=== PATIENT | female | born 1980 | race Caucasian/White ===

== ENCOUNTER 2017-10-29 20:42 | Inpatient (IN) | payer SELFPAY ==
[2017-10-29] MEDS ORDERED: NS 0.9% 1000 ML*IV.FLUID IV ONE (20:52)
[2017-10-29] MEDS ORDERED: cefTRIAXone(*) 1 GM in NS 0.9% 50 ML* 50 ML IVPB ONE (21:04)
[2017-10-29] MEDS ORDERED: NS 0.9% 1000 ML* 2,000 ML IV ONE (21:05)
[2017-10-29] MEDS ORDERED: Acetaminophen TAB* 325 MG PO ONE (21:06)
[2017-10-29 21:16] LABS: ABS Basophils 0.1 10^3/ul (0-0.2); ABS Eosinophils 0 10^3/ul (0-0.6); ABS Monocytes 1.1 10^3/ul (0-0.8); ABS Neutrophils 13.1 10^3/ul (1.5-7.7); ABS Nucleated RBC 0 10^3/ul; Eosinophil % 0.1 % (0-6); Hematocrit 38 % (35-47); Hemoglobin 13.3 g/dl (12.0-16.0); Lymphocyte % 6.5 % (25-47); Mean Corpuscular HGB Conc 35 g/dl (31-36); Mean Corpuscular Hemoglobin 31 pg (27-31); Mean Corpuscular Volume 88 fL (80-97); Mean Platelet Volume 7.4 um3 (7.4-10.4); Nucleated Red Blood Cells % 0; Platelet Count 184 10^3/ul (150-450); Red Blood Count 4.31 10^6/ul (4.00-5.40); Red Cell Distribution Width 13 % (10.5-15); White Blood Count 15.2 10^3/ul (3.5-10.8)
[2017-10-29 21:24] LABS: INR 1.19 (0.77-1.02)
[2017-10-29 21:33] LABS: EGFR Non-African American 57.4 (>60)
--- NOTE | 2017-10-29 21:47 | RAD ---
INDICATION: Chest pain COMPARISON: Chest x-ray January 01, 2013 TECHNIQUE: Single AP portable view of the chest was obtained. FINDINGS: Image quality is compromised due to the relative inferiority of a portable chest x-ray. The heart and mediastinum exhibit normal size and contour. The lungs are grossly clear. There is no evidence of a large pleural effusion. Visualized bones are normal for the patient's age. IMPRESSION: No radiographic evidence for acute cardiopulmonary abnormality on this portable chest x-ray.
[2017-10-29 22:20] LABS: Urine Appearance Cloudy; Urine Blood 2+ (Negative); Urine Color Yellow; Urine Ketones Trace (Negative); Urine Protein 2+(100 mg/dL) (Negative); Urine Specific Gravity 1.009 (1.010-1.030); Urine Urobilinogen Negative (Negative)
[2017-10-29] MEDS ORDERED: NS 0.9% 1000 ML* 1,000 ML IV ONE (23:53)
[2017-10-30] MEDS ORDERED: LORazepam TAB(*) 0.5 MG PO PRN (01:31)
[2017-10-30] MEDS ORDERED: tiZANidine TAB* 2 MG PO PRN (01:31)
[2017-10-30] MEDS: NS 0.9% w/ 20 Meq KCL 1000 ML* 1,000 ML IV SCH ×4 (02:29→18:40)
[2017-10-30] MEDS ORDERED: Acetaminophen TAB* 325 MG ONE (02:34)
[2017-10-30] MEDS: Acetaminophen TAB* 325 MG PO PRN ×2 (02:38→13:35)
[2017-10-30] MEDS: SUMAtriptan TAB* 25 MG PO PRN ×4 (03:14→18:10)
[2017-10-30] MEDS: Ibuprofen TAB* 400 MG PO PRN ×3 (03:45→18:10)
[2017-10-30 07:11] LABS: ABS Basophils 0 10^3/ul (0-0.2); ABS Eosinophils 0 10^3/ul (0-0.6); ABS Lymphocytes 0.9 10^3/ul (1.0-4.8); ABS Monocytes 0.7 10^3/ul (0-0.8); ABS Neutrophils 12.5 10^3/ul (1.5-7.7); ABS Nucleated RBC 0 10^3/ul; Eosinophil % 0 % (0-6); Hematocrit 33 % (35-47); Hemoglobin 11.4 g/dl (12.0-16.0); Lymphocyte % 6.2 % (25-47); Mean Corpuscular HGB Conc 35 g/dl (31-36); Mean Corpuscular Hemoglobin 31 pg (27-31); Mean Corpuscular Volume 88 fL (80-97); Mean Platelet Volume 7.8 um3 (7.4-10.4); Nucleated Red Blood Cells % 0; Platelet Count 141 10^3/ul (150-450); Red Blood Count 3.74 10^6/ul (4.00-5.40); Red Cell Distribution Width 13 % (10.5-15); White Blood Count 14.1 10^3/ul (3.5-10.8)
[2017-10-30 07:22] LABS: EGFR Non-African American 86.1 (>60)
[2017-10-30] MEDS: buPROPion SR TAB.SR* 200 MG PO SCH ×2 (08:10→20:59)
[2017-10-30] MEDS: Pregabalin CAP(*) 50 MG PO SCH ×2 (08:10→21:00)
[2017-10-30] MEDS: Topiramate TAB(*) 100 MG PO SCH ×2 (08:10→20:59)
[2017-10-30] MEDS ORDERED: Meloxicam(NF) 15 MG TAB PO SCH (09:00)
[2017-10-30] MEDS: KCL 10 MEQ/50 ML IVPREMIX* 10 MEQ/50 ML BAG IV SCH ×2 (09:04→11:31)
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
[2017-10-30] MEDS ORDERED: Potassium Chlor TAB* 20 MEQ TAB.ER PO ONE (10:03)
--- NOTE | 2017-10-30 11:22 | RAD ---
INDICATION: Right flank pain COMPARISON: CT abdomen pelvis November 06, 2014 TECHNIQUE: Longitudinal and transverse scans of the kidneys were obtained. FINDINGS: Kidneys: The kidneys are normal in size and echogenicity. There are no sonographically identifiable renal calculi. There is mild pelvocaliectasis on the right with trace right-sided perinephric fluid. The right kidney measures 13.6 x 7.0 x 5.5 cm and the left kidney 12.3 x 6.0 x 5.1 cm. Other: Bilateral ureteral jets are document IMPRESSION: MILD RIGHT-SIDED PYELOCALIECTASIS AND TRACE RIGHT-SIDED PERINEPHRIC FLUID. NO SONOGRAPHICALLY IDENTIFIABLE RENAL CALCULI. BILATERAL URETERAL JETS ARE DOCUMENT.
[2017-10-30] MEDS ORDERED: Potassium Chlor TAB* 10 MEQ TAB.ER PO ONE (13:20)
--- NOTE | 2017-10-30 15:09 | PN ---
Subjective Date of Service: 10/30/17 Interval History: Pt seen and examined. Meds and labs reviewed. ROS: Complains of right flank pain. Denied SANDOVAL/dizziness, F/C, N/V, CP, SOB, increased cough, sputum production, diarrhea, constipation, dysuria, myalgias, arthralgias, throat pain, and new skin lesions. The rest of the 14 point ROS are unremarkable. Mentioned she had passed "stones" a month or two ago and had a follow up imaging which did not reveal any significant obstruction. PHYSICAL EXAM: GEN APPEARANCE: Awake, not in acute distress HEENT: NC/AT, PERRLA, moist oral mucosa, (-) throat erythema NECK: Soft, supple, (-) cervical LAD, (-)JVD HEART: S1S2 WNL, RRR, No MRG CHEST: CTA, BL, GAE, No W/R/R ABD: Soft, ND/NT, NABS 4x Q, No CVA tenderness EXT: No C/C/E SKIN: Warm to touch PSYCH: No active psychosis, hallucinations, depression, SI/HI Objective Active Medications: Acetaminophen (Tylenol Tab*) 650 mg PO Q6H PRN PRN Reason: FEVER/PAIN Last Admin: 10/30/17 13:35 Dose: 650 mg Bupropion HCl (Wellbutrin Sr Tab*) 200 mg PO BID [facility] Last Admin: 10/30/17 08:10 Dose: 200 mg Potassium Chloride/Sodium Chloride (Ns 0.9% W/ 20 Meq Kcl 1000 Ml*) 1,000 mls @ 150 mls/hr IV PER RATE [facility] Last Admin: 10/30/17 09:39 Dose: 150 mls/hr Ceftriaxone Sodium 1 gm/ (Sodium Chloride) 50 mls @ 200 mls/hr IVPB Q24H [facility] Ibuprofen (Motrin Tab*) 400 mg PO Q6H PRN PRN Reason: PAIN OR TEMPERATURE Last Admin: 10/30/17 11:30 Dose: 400 mg Lorazepam (Ativan Tab(*)) 0.5 mg PO Q8H PRN PRN Reason: AGITATION/ANXIETY Pregabalin (Lyrica Cap(*)) 150 mg PO BID [facility] Last Admin: 10/30/17 08:10 Dose: 150 mg Sumatriptan Succinate (Imitrex Tab*) 25 mg PO Q2H PRN PRN Reason: MIGRAINES Last Admin: 10/30/17 13:25 Dose: 25 mg Tizanidine HCl (Zanaflex Tab*) 6 mg PO Q6HR PRN PRN Reason: SPASMS - MUSCLE Topiramate (Topamax(*)) 100 mg PO BID [facility] Last Admin: 10/30/17 08:10 Dose: 100 mg Vital Signs - 8 hr 10/30/17 10/30/17 10/30/17 07:24 08:00 08:10 Temperature 98.9 F Pulse Rate 118 Respiratory 16 17 17 Rate Blood Pressure 93/51 (mmHg) O2 Sat by Pulse 100 100 Oximetry Oxygen Devices in Use Now: None Result Diagrams: 10/30/17 06:37 10/30/17 06:37 Microbiology and Other Data: Microbiology 10/29/17 21:31 Urine Culture - Preliminary Urine Escherichia Coli Assess/Plan/Problems-Billing Assessment: 37F with history of FM, Migraine SANDOVAL, and recently passed renal stones 1-2 mos ago, admitted with right flank pain without CVA tenderness and admitted for UTI with sepsis - Patient Problems (1) Sepsis due to urinary tract infection Current Visit: Yes Status: Acute Code(s): A41.9 - SEPSIS, UNSPECIFIED ORGANISM; N39.0 - URINARY TRACT INFECTION, SITE NOT SPECIFIED SNOMED Code(s): 760707755 Comment: -Will continue IVF and re-ordered Rocephin that was ordered yesterday -Urine Cultures grow E. coliawaiting sensitivity data (2) Hypokalemia Current Visit: Yes Status: Acute Code(s): E87.6 - HYPOKALEMIA SNOMED Code( s): 85816066 Comment: -Corrected -Continue watchful waiting (3) Depression Current Visit: Yes Status: Acute Code(s): F32.9 - MAJOR DEPRESSIVE DISORDER , SINGLE EPISODE, UNSPECIFIED SNOMED Code(s): 15970806 Comment: -Continue Bupropion Status and Disposition: -As above
[2017-10-30] MEDS: cefTRIAXone(*) 1 GM in NS 0.9% 50 ML* 50 ML IVPB SCH (15:13)
--- NOTE | 2017-10-30 16:43 | RAD ---
INDICATION: Right flank pain COMPARISON: Renal sonogram same date; CT abdomen pelvis November 06, 2014 TECHNIQUE: Noncontrast axial source images were acquired from the level hemidiaphragms to the symphysis pubis as part of CT imaging for renal stone. Lung bases: The lung bases are clear. Liver: The liver is enlarged with findings of hepatic steatosis. Noncontrast imaging shows no evidence of a hepatic mass or ductal dilatation. Gallbladder: There are no calcified gallstones. There is no evidence of wall thickening or pericholecystic fluid.. Spleen: There is moderate splenomegaly. Pancreas: Noncontrast imaging shows no pancreatic mass or ductal dilitation. Adrenal glands: No masses are identified. Kidneys/Bladder: There is right-sided hydronephrosis with perinephric stranding. The proximal two thirds of the right ureter are dilated and there is mild ureteral enhancement. No radiopaque calculus is identified. The left kidney and ureter are unremarkable. Adenopathy: There is no evidence of intraperitoneal or retroperitoneal adenopathy. Evaluation is limited without oral contrast. Fluid collections: No additional fluid collections. Vessels: The aorta and iliac vessels are normal in caliber. There are no significant atherosclerotic changes. The IVC appears normal Pelvic organs: There is a 3.4 cm left adnexal cyst. The right adnexa is unremarkable. The uterus is retroflexed. GI tract: Evaluation of the bowel is limited without oral contrast. The stomach, small bowel, and lower GI tract appear grossly normal. There are no obstructive findings. The appendix is visualized and appears normal. Soft tissues: No soft tissue abnormalities of the extraperitoneal abdomen or pelvis are identified. Osseous structures: There are no acute osseous findings. IMPRESSION: 1. Hepatosplenomegaly with hepatic steatosis. 2. Mild right-sided hydronephrosis and hydroureter without identification of a radiopaque calculus. Consider also infection in the appropriate clinical setting. 3. 3.4 cm left adnexal cyst. This could be evaluated with nonemergent pelvic sonography
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
[2017-10-31] MEDS: Ibuprofen TAB* 400 MG PO PRN ×2 (01:45→08:21)
[2017-10-31] MEDS: NS 0.9% w/ 20 Meq KCL 1000 ML* 1,000 ML IV SCH ×2 (02:20→09:24)
[2017-10-31] MEDS: SUMAtriptan TAB* 25 MG PO PRN ×2 (03:53→12:44)
[2017-10-31] MEDS: Acetaminophen TAB* 325 MG PO PRN (03:53)
[2017-10-31 07:01] LABS: ABS Basophils 0 10^3/ul (0-0.2); ABS Eosinophils 0 10^3/ul (0-0.6); ABS Lymphocytes 1.3 10^3/ul (1.0-4.8); ABS Monocytes 1.1 10^3/ul (0-0.8); ABS Neutrophils 8.5 10^3/ul (1.5-7.7); ABS Nucleated RBC 0 10^3/ul; Eosinophil % 0.2 % (0-6); Hematocrit 33 % (35-47); Hemoglobin 11.3 g/dl (12.0-16.0); Lymphocyte % 11.8 % (25-47); Mean Corpuscular HGB Conc 35 g/dl (31-36); Mean Corpuscular Hemoglobin 31 pg (27-31); Mean Corpuscular Volume 89 fL (80-97); Mean Platelet Volume 7.9 um3 (7.4-10.4); Nucleated Red Blood Cells % 0; Platelet Count 136 10^3/ul (150-450); Red Blood Count 3.66 10^6/ul (4.00-5.40); Red Cell Distribution Width 13 % (10.5-15); White Blood Count 10.9 10^3/ul (3.5-10.8)
[2017-10-31] MEDS: Pregabalin CAP(*) 50 MG PO SCH (08:20)
[2017-10-31] MEDS: Topiramate TAB(*) 100 MG PO SCH (08:21)
[2017-10-31] MEDS: buPROPion SR TAB.SR* 200 MG PO SCH (08:22)
[2017-10-31] MEDS ORDERED: cefTRIAXone(*) 1 GM in NS 0.9% 50 ML* 50 ML IM ONE (13:34)
[2017-10-31] MEDS ORDERED: ceFUROXime TAB(*) 250 MG PO ONE (14:00)
[2017-10-31] MEDS: cefTRIAXone(*) 1 GM in NS 0.9% 50 ML* 50 ML IVPB SCH (14:21)
[2017-10-31 14:31] VITALS: BP 98/68
--- NOTE | 2017-10-31 21:26 | DS ---
DISCHARGE SUMMARY: DATE OF ADMISSION: DATE OF DISCHARGE: 10/31/17 HOSPITAL COURSE: This 37-year-old woman presented with fever of 104, rigors. She did not have abdominal pain, nausea, or vomiting. She said her urine looked cloudy. She has had both kidney stones in the past as well as bladder infections in the past. She was evaluated with both a renal ultrasound and a CT scan of the abdomen and pelvis. She has a 3.4-cm left adnexal cyst. The urine showed 50,000 to 75,000 E. coli sensitive to all antibiotics tested. The patient rapidly improved overnight. She did have a temperature of 101.1 at 3 a.m., but clinically she was much better. She is being discharged on a 6-day course of cefuroxime 500 mg b.i.d. FINAL DIAGNOSES: 1. Urinary tract infection. 2. Migraine headaches. 3. Fibromyalgia. 4. Chronic pain. DISCHARGE MEDICATIONS: 1. Cefuroxime 500 mg b.i.d. for 6 days. 2. Tizanidine 6 mg every 6 hours p.r.n. 3. Pregabalin 150 mg b.i.d. 4. Wellbutrin SR 200 mg b.i.d. 5. Topiramate 100 mg b.i.d. 6. Lorazepam 0.5 mg every 8 hours p.r.n. 7. Sumatriptan 25 mg as directed. 8. Meloxicam 15 mg daily. [id number]/[facility] #: [id number] MTDD
== END 2017-10-31 15:05 | disposition home or self-care (01) | DRG 872 ==
LOC: ED 20:42 → MED 10-30 00:34
PROVIDERS: ADMIT Internal Medicine; ATTEND Internal Medicine
DX: A41.9 Sepsis, unspecified organism (principal); N39.0 Urinary tract infection, site not specified; E27.8 Other specified disorders of adrenal gland; B96.20 Unspecified Escherichia coli [E. coli] as the cause of diseases classified elsewhere; G43.909 Migraine, unspecified, not intractable, without status migrainosus; M79.7 Fibromyalgia; G89.29 Other chronic pain; E87.6 Hypokalemia; F32.9 Major depressive disorder, single episode, unspecified; M51.36 Other intervertebral disc degeneration, lumbar region; R10.31 Right lower quadrant pain; R07.9 Chest pain, unspecified; Z87.442 Personal history of urinary calculi; Z79.899 Other long term (current) drug therapy; Z88.1 Allergy status to other antibiotic agents; Z88.8 Allergy status to other drugs, medicaments and biological substances; Z80.3 Family history of malignant neoplasm of breast; Z83.3 Family history of diabetes mellitus; Z84.89 Family history of other specified conditions
CPT/HCPCS: 36415; 71045; 74176; 76775; 80048; 80053; 81003; 81015; 83605; 83735; 84100; 84145; 84484; 84702; 85025; 85610; 85652; 85730; 86140; 86618; 87040; 87077; 87086; 87150; 87186; 87502; 93005; 99285; A9270-GY; J0696; J3480

== ENCOUNTER 2019-08-30 15:49 | Emergency (ER) | payer MEDICAID ==
[2019-08-30] MEDS ORDERED: Albuterol/Ipratropium NEB.SOL* (2.5/0.5 MG) 3 ML NEB.SOLN INH ONE (16:51)
[2019-08-30] MEDS ORDERED: methylPREDNISolone 125 MG* 2 ML VIAL IV ONE (16:52)
[2019-08-30] MEDS ORDERED: Ondansetron INJ* 2 MG/ML VIAL IV ONE (16:53)
--- NOTE | 2019-08-30 16:53 | ED ---
HPI Chest Pain - HPI Summary HPI Summary: 38-year-old female presents with chest pain for the past 4 days. She has the pain in the center of her chest and feels like dull ache pain. chest pain is constant. pain does not change with deep breath. She admits to shortness breath and states it feels like her asthma is acting up. She has been wheezing at night. No cough. No fevers. She denies any sinus congestion or sore throat. She is not around anyone who is sick. no recent travel. She has been having abdominal pain for a while. She may have a UTI. She was to some flank pain. Has history of UTIs and kidney stones. He does have right-sided flank pain. She admits to nausea and vomiting. States she has not had a bowel movement in a while and has been taking Dulcolax is causing her vomit. She has history asthma and fibromyalgia. she has family history of PE and cardiac disease. She is not a smoker. She is not on control. - History of Current Complaint Chief Complaint: EDChestWallPain Time Seen by Provider: 08/30/19 16:40 Hx Last Menstrual Period: 04/17/14 Pain Intensity: 8 - Additional Pertinent History Primary Care Physician: [id number] - Allergy/Home Medications Allergies/Adverse Reactions: Allergies Allergy/AdvReac Type Severity Reaction Status Date / Time baclofen Allergy Anaphylatic Verified 10/29/17 20:50 Shock tramadol Allergy Rash Verified 10/29/17 20:50 vancomycin Allergy Hives/Diff. Verified 10/30/17 01:26 Breathing/I tching Home Medications: Home Medications Tizanidine HCl [Zanaflex] 6 mg PO Q6HR PRN 10/18/15 [History Confirmed 10/30/17] Pregabalin [Lyrica] 150 mg PO BID 10/29/17 [History Confirmed 10/29/17] Wellbutrin SR TAB* 200 mg PO BID 10/29/17 [History Confirmed 10/30/17] LORazepam TAB(*) [Ativan 0.5 MG TAB (*)] 0.5 mg PO Q8H PRN 10/30/17 [History Confirmed 10/30/17] Meloxicam [Mobic] 15 mg PO DAILY 10/30/17 [History Confirmed 10/30/17] SUMAtriptan TAB* [Imitrex TAB*] 25 mg PO SEE INSTRUCTIONS 10/30/17 [History Confirmed 10/30/17] Topiramate TAB(*) [Topamax 100 mg tab] 100 mg PO BID 10/30/17 [History Confirmed 10/30/17] Cefuroxime 500 MG TAB (NF) [Ceftin 500 MG TAB (NF)] 500 mg PO BID 12 Days #1 tab 10/31/17 [Rx] Albuterol HFA INHALER* [Ventolin HFA Inhaler*] 1 puff INH Q6H PRN #1 mdi [Rx] Fluticasone-Salmeterol 250-50* [Advair Diskus 250-50*] 1 puff INH BID #1 diskus 08/30/19 [Rx] PMH/Surg Hx/FS Hx/Imm Hx Endocrine/Hematology History: Denies: Hx Diabetes, Hx Thyroid Disease Cardiovascular History: Denies: Hx Congestive Heart Failure, Hx Hypertension Respiratory History: Reports: Hx Asthma Denies: Hx Chronic Obstructive Pulmonary Disease (COPD) GI History: Denies: Hx Ulcer, Other GI Disorders History: Denies: Hx Renal Disease, Other Problems/Disorders Sensory History: Reports: Hx Contacts or Glasses Denies: Hx Hearing Aid Opthamlomology History: Reports: Hx Contacts or Glasses Neurological History: Reports: Hx Migraine, Other Neuro Impairments/Disorders - Pinched cervical nerves Psychiatric History: Reports: Hx Depression - Surgical History Surgery Procedure, Year, and Place: Fx skull surgery,, Fx collar bone, Fx bilateral knees from 1986 Infectious Disease History: No Infectious Disease History: Denies: Hx Clostridium Difficile, Hx Hepatitis, Hx Human Immunodeficiency Virus (HIV), Hx of Known/Suspected MRSA, Hx Shingles, Hx Tuberculosis, Hx Known/ Suspected VRE, Hx Known/Suspected VRSA, History Other Infectious Disease, Traveled Outside the [place] in Last 30 Days - Family History Known Family History: Positive: Diabetes - Social History Alcohol Use: Rare Substance Use Type: Reports: None Smoking Status (MU): Former Smoker Type: Cigarettes Length of Time of Smoking/Using Tobacco: 10 years Have You Smoked in the Last Year: No Review of Systems Negative: Fever Positive: Chest Pain Positive: Shortness Of Breath. Negative: Cough Positive: Abdominal Pain, Vomiting, Nausea. Negative: Diarrhea Positive: dysuria, flank pain All Other Systems Reviewed And Are Negative: Yes Physical Exam Triage Information Reviewed: Yes Vital Signs On Initial Exam: Initial Vitals Temp Pulse Resp BP Pulse Ox 97.7 F 78 20 138/86 98 08/30/19 16:01 08/30/19 16:01 08/30/19 16:01 08/30/19 16:01 08/30/19 16:01 Vital Signs Reviewed: Yes Appearance: Positive: Well-Appearing Skin: Positive: Warm, Dry Head/Face: Positive: Normal Head/Face Inspection Eyes: Positive: Normal, Conjunctiva Clear ENT: Positive: Pharynx normal Respiratory/Lung Sounds: Positive: Clear to Auscultation, Breath Sounds Present , Other - reproducible chest pain Cardiovascular: Positive: Normal, RRR Abdomen Description: Positive: Nontender, Soft, CVA Tenderness (R). Negative: CVA Tenderness (L) Bowel Sounds: Positive: Present Musculoskeletal: Positive: Normal Neurological: Positive: Normal Psychiatric: Positive: Normal Procedures - Sedation Patient Received Moderate/Deep Sedation with Procedure: No Diagnostics - Vital Signs Vital Signs Temp Pulse Resp BP Pulse Ox 08/30/19 16:01 97.7 F 78 20 138/86 98 - Laboratory Result Diagrams: 08/30/19 17:25 08/30/19 17:25 Lab Statement: Any lab studies that have been ordered have been reviewed, and results considered in the medical decision making process. - Radiology renal Radiology Interpretation Completed By: Radiologist Summary of Radiographic Findings: IMPRESSION: RENAL CALCULI ABOVE MEASURING 0.6 CM. NO HYDRONEPHROSIS. - CT cta CT Interpretation Completed By: Radiologist Summary of CT Findings: IMPRESSION: 1. NO EVIDENCE FOR PULMONARY EMBOLISM. 2. HEPATIC STEATOSIS. - EKG No standard instances Cardiac Rate: NL EKG Rhythm: Sinus Rhythm Summary of EKG Findings: sinus rhythm Re-Evaluation - Re-Evaluation First Eval Comment: discussed results with get CT Second Eval Re-Evaluation Time: 20:40 Comment: feeling better. discussed CTA results Chest Pain Course/Dx - Course Course Of Treatment: 38-year-old female presents with chest pain for the past 4 days. She has the pain in the center of her chest and feels like dull ache pain. chest pain is constant. pain does not change with deep breath. She admits to shortness breath and states it feels like her asthma is acting up. She has been wheezing at night. No cough. No fevers. She denies any sinus congestion or sore throat. She is not around anyone who is sick. no recent travel. She has been having abdominal pain for a while. She may have a UTI. She was to some flank pain. Has history of UTIs and kidney stones. He does have right-sided flank pain. She admits to nausea and vomiting. States she has not had a bowel movement in a while and has been taking Dulcolax is causing her vomit. She has history asthma and fibromyalgia. she has family history of PE and cardiac disease. She is not a smoker. She is not on control. On exam has reproducible chest pain. Lungs to auscultation. Abdomen soft nontender. Right-sided flank pain. EKG shows sinus rhythm. wbc normal. d- dimer is elevated so will get CTA. troponin zero. crp normal. urine no infection. heart score 1. CTA shows no acute findings. renal ultrasound shows renal stone no hydro. discussed chest pain is reproducible so likely musclar with asthma component. will place back on asthma medications. will have est care with primary. patient understand and agrees with plan. - Chest Pain Differential Diagnosis/HQI/PQRI: Chest Wall, GI Disease, Pulmonary Embolism - Diagnoses Provider Diagnoses: Chest wall pain, Asthma, Flank pain - Critical Care Time Critical Care Statement: Critical care time is provided exclusive of any time spent performing procedures. Discharge ED - Sign-Out/Discharge Documenting (check all that apply): Patient Departure - Discharge Plan Condition: Good Disposition: HOME Prescriptions: Albuterol HFA INHALER* [Ventolin HFA Inhaler*] 1 puff INH Q6H PRN #1 mdi PRN Reason: Sob/Wheezing Fluticasone-Salmeterol 250-50* [Advair Diskus 250-50*] 1 puff INH BID #1 diskus Patient Education Materials: Asthma (ED) Referrals: [facility] [Outside] Additional Instructions: Use inhaler up to two puffs every 4 hours for cough and wheezing Take Tylenol or ibuprofen for pain every 6 hours Establish care with primary Return to ED if develop any new or worsening symptoms - Billing Disposition and Condition Condition: GOOD Disposition: Home
[2019-08-30 17:39] LABS: ABS Basophils 0.1 10^3/ul (0-0.2); ABS Eosinophils 0.1 10^3/ul (0-0.6); ABS Lymphocytes 2.1 10^3/ul (1.0-4.8); ABS Monocytes 0.6 10^3/ul (0-0.8); ABS Neutrophils 5.6 10^3/ul (1.5-7.7); Eosinophil % 0.8 %; Hematocrit 38 % (35-47); Hemoglobin 13.5 g/dL (12.0-16.0); Lymphocyte % 24.9 %; Mean Corpuscular HGB Conc 35 g/dL (31-36); Mean Corpuscular Hemoglobin 30 pg (27-31); Mean Corpuscular Volume 86 fL (80-97); Mean Platelet Volume 7.5 fL (7.4-10.4); Platelet Count 273 10^3/uL (150-450); Red Blood Count 4.44 10^6 /uL (3.70-4.87); Red Cell Distribution Width 13 % (10-15); White Blood Count 8.5 10^3/uL (3.5-10.8)
[2019-08-30 17:56] LABS: ALT 53 U/L (7-52); AST 49 U/L (13-39); Albumin 4.3 g/dL (3.2-5.2); Albumin/Globulin Ratio 1.3 (1-3); Alkaline Phosphatase 46 U/L (34-104); Anion Gap 5 mmol/L (2-11); Blood Urea Nitrogen 12 mg/dL (6-24); C Reactive Protein 11.21 mg/L (<8.01); CO2 Carbon Dioxide 28 mmol/L (22-32); Calcium 9.4 mg/dL (8.6-10.3); Chloride 103 mmol/L (101-111); EGFR African American 128.7 (>60); EGFR Non-African American 106.3 (>60); Globulin 3.3 g/dL (2-4); Glucose 87 mg/dL (70-100); Potassium 3.7 mmol/L (3.5-5.0); Sodium 136 mmol/L (135-145); Total Protein 7.6 g/dL (6.4-8.9)
[2019-08-30 18:01] LABS: HCG Pregnancy < 0.60 mIU/mL
[2019-08-30 18:38] LABS: Urine Appearance Clear; Urine Bilirubin Negative (Negative); Urine Blood Negative (Negative); Urine Color Yellow; Urine Glucose Negative (Negative); Urine Ketones Negative (Negative); Urine Nitrite Negative (Negative); Urine Protein Negative (Negative); Urine Specific Gravity 1.015 (1.010-1.030); Urine Urobilinogen Negative (Negative)
[2019-08-30] MEDS ORDERED: Iohexol 350* (CONTRAST) 500 ML MDV IV ONE (18:47)
[2019-08-30] MEDS ORDERED: A lbuterol Hfa (PREPAK) 1 MDI - ED TAKE HOME DISPENSING ONLY INHH ONE (20:55)
[2019-08-30 21:09] VITALS: BP 102/70
== END 2019-08-30 21:09 | disposition home or self-care (01) ==
LOC: ED 15:49
DX: R07.89 Other chest pain (principal); R06.02 Shortness of breath; R10.9 Unspecified abdominal pain; R11.2 Nausea with vomiting, unspecified; R10.84 Generalized abdominal pain; R30.0 Dysuria; J45.909 Unspecified asthma, uncomplicated; Z87.891 Personal history of nicotine dependence; Z79.899 Other long term (current) drug therapy
CPT/HCPCS: 36415; 71275; 76775; 80053; 81003; 83605; 84484; 84702; 85025; 85379; 86140; 93005; 96374; 96375; 99283; J2405; J2930; Q9967